=== PATIENT | female | born 1995 | race Caucasian/White ===

== ENCOUNTER 2018-05-10 18:06 | Emergency (ER) | payer OTHER ==
[2018-05-10] MEDS ORDERED: Adacel (T-DAP) 0.5 ML VIAL ONE (20:20)
== END 2018-05-10 21:01 | disposition home or self-care (01) ==
LOC: ERS 18:06
DX: S61.303A Unspecified open wound of left middle finger with damage to nail, initial encounter (principal); Z23 Encounter for immunization; W26.0XXA Contact with knife, initial encounter
CPT/HCPCS: 90471; 90715